=== PATIENT | male | born 1950 | race Caucasian/White ===

== ENCOUNTER 2019-09-06 17:06 | Emergency (ER) | payer MEDICARE ==
[2019-09-06] MEDS ORDERED: DIPH/PERTUSS(ACELL)/TETANUS VAC/PF 0.5 ML SYR (>=10YO) IM ONE (18:38)
--- NOTE | 2019-09-06 18:39 | ER Document Report ---
ED Medical Screen (RME) - General Chief Complaint: Laceration Stated Complaint: LEFT HAND LACERATION Time Seen by Provider: 09/06/19 18:30 Mode of Arrival: Ambulatory Information source: Patient Notes: Otherwise healthy 69-year-old male presents emergency department chief complaint of laceration to his left second digit. Patient has a large approximately 4 to 5 cm laceration that was caused by a circular saw. His last Tdap was approximately 5 years ago. He does have cap refill less than 3 seconds, normal sensation distal to laceration, good range of motion but slightly limited. Clean saline dressing applied. I have greeted and performed a rapid initial assessment of this patient. A comprehensive ED assessment and evaluation of the patient, analysis of test results and completion of the medical decision making process will be conducted by additional ED providers. I have specifically instructed the patient or family members with the patient to immediately return to any nursing staff should anything change in the patient's condition or with their chief complaint. This medical record was dictated with voice recognizing software. There may be grammatical, syntax errors that are unintended. TRAVEL OUTSIDE OF THE [place] IN LAST 30 DAYS: No - Related Data Allergies/Adverse Reactions: No Known Allergies Allergy (Verified 09/06/19 18:28) Past Medical History - Social History Chew tobacco use (# tins/day): Yes Frequency of alcohol use: None Drug Abuse: None Past Surgical History: Reports: Hx Appendectomy Physical Exam - Vital signs Vitals: Temp Pulse Resp BP Pulse Ox 97.9 F 82 20 156/85 H 98 09/06/19 17:19 09/06/19 17:19 09/06/19 17:19 09/06/19 17:19 09/06/19 17:19 Course - Vital Signs Vital signs: Temp Pulse Resp BP Pulse Ox 97.9 F 82 20 156/85 H 98 09/06/19 18:28 09/06/19 17:19 09/06/19 18:28 09/06/19 17:19 09/06/19 18:28
--- NOTE | 2019-09-06 18:57 | RADIOLOGY REPORT (SQ) ---
EXAM DESCRIPTION: HAND LEFT 3 VIEWS COMPLETED DATE/TIME: 09/06/2019 6:46 pm REASON FOR STUDY: 2nd digit laceration, eval for FB or FX COMPARISON: None. NUMBER OF VIEWS: Three views left hand. LIMITATIONS: Positioned limits evaluation of the pinky finger, reportedly not the digits of interest however. FINDINGS: Osteopenic. External artifact along the index finger. 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 No fracture. Allowing for external artifact, no definite radiopaque foreign body. OTHER: No other significant finding. IMPRESSION: Limited study as above. No gross fracture or suggested radiopaque foreign body in the i ndex finger. TECHNICAL DOCUMENTATION: JOB ID: [id number] Reading location - IP/workstation name: [email or web address]
[2019-09-06] MEDS ORDERED: LIDOCAINE 1% INJ-PF (10 MG/ML) 30 ML SDV INJ ONE (20:47)
--- NOTE | 2019-09-06 21:07 | ER Document Report ---
HPI - HPI Time Seen by Provider: 09/06/19 18:30 Pain Level: Denies Notes: Otherwise healthy 69-year-old male presents emergency department chief complaint of laceration to his left second digit. Patient has a large approximately 4 to 5 cm laceration that was caused by a circular saw. His last Tdap was approximately 5 years ago. He does have cap refill less than 3 seconds, normal sensation distal to laceration, good range of motion but slightly limited. - REPRODUCTIVE Reproductive: DENIES: : - MUSCULOSKELETAL Musculoskeletal: REPORTS: Extremity pain Past Medical History - General Information source: Patient - Social History Smoking Status: Former Smoker Chew tobacco use (# tins/day): Yes Frequency of alcohol use: None Drug Abuse: None Family History: Reviewed & Not Pertinent Patient has suicidal ideation: No Patient has homicidal ideation: No Pulmonary Medical History: Reports: Hx COPD Past Surgical History: Reports: Hx Appendectomy - Immunizations Hx Diphtheria, Pertussis, Tetanus Vaccination: No Vertical Provider Document - CONSTITUTIONAL Notes: PHYSICAL EXAMINATION: GENERAL: Well-appearing, well-nourished and in no acute distress. HEAD: Atraumatic, normocephalic. EYES: Pupils equal round extraocular movements intact, conjunctiva are normal. ENT: Nares patent NECK: Normal range of motion LUNGS: No respiratory distress Musculoskeletal: Normal range of motion NEUROLOGICAL: Normal speech, normal gait. PSYCH: Normal mood, normal affect. SKIN: 5 cm laceration noted to left second digit, irregular, deep, no tendon visualized, full range of motion, cap refill less than 3 seconds, strong radial pulse. - INFECTION CONTROL TRAVEL OUTSIDE OF THE [place] IN LAST 30 DAYS: No Course - Re-evaluation Re-evalutation: Laceration repaired under sterile technique, patient tolerated well, see procedure note. Radiology report identifies no fractures or retained foreign body that is radiopaque. Wound was thoroughly irrigated prior to suturing. Patient given ED return precautions, started on antibiotics prophylactically. The patient's emergency department workup and current diagnosis were explained to the patient and or family. Follow-up instructions were provided. Medications if prescribed were discussed. Instructions for when to return to the emergency department including specific worrisome symptoms were discussed with the patient and/or family. - Vital Signs Vital signs: Temp Pulse Resp BP Pulse Ox 97.9 F 82 20 156/85 H 98 09/06/19 18:28 09/06/19 17:19 09/06/19 18:28 09/06/19 17:19 09/06/19 18:28 Procedures - Laceration/Wound Repair Left second digit Wound length (cm): 5 Wound's Depth, Shape: Irregular, Flap, Contused tissue Laceration pre-procedure: Sterile PPE donned Anesthetic type: 1% Lidocaine Wound explored: Clean Wound Repaired With: Sutures Suture Size/Type: 4:0, 3:0, Ethilon, Nylon Number of Sutures: 11 Post-procedure wound care: Sterile dressing applied, Splint applied Post-procedure NV exam normal: Yes Complications: No Discharge - Discharge Clinical Impression: Laceration Condition: Stable Disposition: HOME, SELF-CARE Additional Instructions: Laceration Care Your laceration has been sutured to keep the skin edges aligned during healing. The time of suture removal depends on the nature and location of your cut. Please follow the care instructions the doctor has outlined for you and return for further care, according to the schedule you've been given. Keep the wound and dressing clean. Unless you were told otherwise, you may shower daily, blotting the wound dry with a clean, unused towel. At other times, If the dressing gets wet or blood soaked, remove it and blot the wound dry, then reapply a new dressing. Unless you were instructed otherwise, dressings should be changed at least daily. If any signs of infection occur (swelling, redness, increasing tenderness, red streaks, tender lumps in the armpit or groin above the laceration, or fever), see the doctor immediately. Please return to the emergency department or your primary care provider in 12-14 days for suture removal. Please return earlier if you develop any signs of infection such as increased redness, swelling, foul-smelling drainage or fever. Prescriptions: Cephalexin [Keflex] 500 mg PO BID #14 capsule
[2019-09-06] MEDS ORDERED: IBUPROFEN 600 MG TABLET PO ONE (21:11)
[2019-09-06] MEDS ORDERED: ACETAMINOPHEN 325 MG TABLET PO ONE (21:11)
[2019-09-06 22:54] VITALS: BP 150/78
== END 2019-09-06 22:12 | disposition home or self-care (01) ==
LOC: ER 17:06
DX: S61.211A Laceration without foreign body of left index finger without damage to nail, initial encounter (principal); W29.8XXA Contact with other powered hand tools and household machinery, initial encounter; J44.9 Chronic obstructive pulmonary disease, unspecified
CPT/HCPCS: 99283